=== PATIENT | male | born 1985 | race American Indian/Alaskan Native ===

== ENCOUNTER 2020-06-14 04:00 | Emergency (ER) | payer SELFPAY ==
[2020-06-14] MEDS ORDERED: ACETAMINOPHEN 325 MG TAB ONE (07:48)
[2020-06-14] MEDS ORDERED: ONDANSETRON 4 MG ODT TAB ONE (07:48)
[2020-06-14] MEDS ORDERED: IBUPROFEN 400 MG TAB PO ONE (07:49)
--- NOTE | 2020-06-15 17:59 | XRay Report ---
CHEST 1 VIEW 06/14/2020 3:55 AM INDICATION / CLINICAL INFORMATION: chest pain. COMPARISON: None available. FINDINGS: SUPPORT DEVICES: None. HEART / MEDIASTINUM: No significant abnormality. LUNGS / PLEURA: No significant pulmonary or pleural abnormality. No pneumothorax. ADDITIONAL FINDINGS: No significant additional findings. IMPRESSION: 1. No acute findings. Signer Name: Nikita Bridges MD Signed: 06/14/2020 5:00 AM Workstation Name: [id number]
[2020-06-22 14:24] LABS: Alanine Aminotransferase 15 units/L (7-56); Albumin 4.5 g/dL (3.9-5); BUN/Creatinine Ratio 18; Blood Urea Nitrogen 14 mg/dL (9-20); Calcium 9.2 mg/dL (8.4-10.2)
--- NOTE | 2020-07-30 06:47 | Event Note ---
Date: 06/14/20 Please note that this is a duplicate chart for the downtime chart written for this particular day of service. [id number] jason ghosh Birthday: 1985 Date of service 06/14/2020 The patient was evaluated in the emergency department for symptoms described in the history of present illness. He/she was evaluated in the context of the global COVID-19 pandemic, which necessitated consideration that the patient might be at risk for infection with the virus that causes COVID-19. Institutional protocols and algorithms that pertain to the evaluation of patients at risk for COVID-19 are in a state of rapid change based on information released by regulatory bodies including the CDC and federal and state organizations. These policies and algorithms were followed during the patient's care in the emergency department. Please note that these policies, procedures and recommendations changed on a rapid basis. Please note that at the time of this chart dictation, medical record system is on downtime, therefore, old medical records, are not accessible to myself. The patient is a pleasant, calm and cooperative 34-year-old gentleman, who is not known to myself previously, who does not have a local primary care doctor and denies chronic medical conditions. He presents to the ER with a complaint of nontraumatic central chest wall pain, present for the past 2 to 3 days, associated with dry cough. He denies headache, neck pain, abdominal pain, exertional shortness of breath, hematemesis, bright red blood per rectum, urinary symptoms, extremity weakness/numbness, he also denies loss of taste, loss of smell, and Covid symptomatology. He denies travel, surgery, immobilization, and family history of DVT, pulmonary embolism, and coronary artery disease. His chest wall pain is aching and throbbing, increases with palpation, range of motion, and decreases with rest. The pain does not radiate to the back, arms or neck. There is no diaphoresis or exertional shortness of breath. He endorses 3 episodes of nonbloody, nonbilious emesis, versus coughing up, which are since resolved. He has not taken anything [id number] for this. He occasionally consumes marijuana recreationally, but denies hard drugs. His symptoms are improved in the emergency room with acetaminophen and ibuprofen. Review of systems: As per history of present illness Physical exam: Blood pressure 117/76. Heart rate 82 bpm. Respirations 18/min. Saturating at 99% on room oxygen. Temperature 99.0 F. The patient appeared well nourished and normally developed. Vital signs as documented. Head exam is unremarkable. Normocephalic atraumatic No scleral icterus or corneal arcus noted. [id number] jason ghosh Birthday: 1985 Date of service 06/14/2020 Neck is without jugular venous distension, thyromegaly there are no meningeal signs, and the neck is nontender. . Lungs are clear to auscultation and percussion. There is reproducible central chest wall tenderness. There are no rales, rhonchi, or wheezes. . Rhythm is regular. First and second heart sounds normal. No murmurs, rubs or gallops. Abdominal exam reveals normal bowel sounds, no masses, no organomegaly and no aortic enlargement. There is no pulsatile abdominal mass. . 2+ pulses noted in the bilateral upper and lower extremities. There is no palpable cord. negative Homans sign. Muscular compartments are soft. The pelvis is stable. No facial droop. Tongue midline. Extraocular movements intact bilaterally. Facial sensation intact to light touch in V1, V2, V3 distribution bilaterally. 5 and a 5 strength in 4 extremities. Sensation intact to light touch in 4 extremities. No skin redness, pus, streaking, erythema, or breakdown. Diagnostic studies/laboratory studies: White blood cell count: 8.7. Hemoglobin: 15.5. Hematocrit: 44.7. Platelet count: 210. MCV: 88.9. Sodium: 140 potassium: 4.4 chloride: 101.1. CO2: 27 anion gap: 16 BUN: 14 creatinine: 0.18 glucose: 99 calcium: 9.2 total bilirubin: 0.6 AST: 17 ALT: 15 total protein: 7.1 troponin: 0.010/negative Lab Results 06/14/20 Range/Units 04:45 Sodium 140 (137-145) mmol/L Potassium 4.4 (3.6-5.0) mmol/L Chloride 101.1 (98-107) mmol/L Carbon Dioxide 27 (22-30) mmol/L Anion Gap 16 mmol/L BUN 14 (9-20) mg/dL Creatinine 0.8 (0.8-1.3) mg/dL Estimated GFR > 60 ml/min BUN/Creatinine Ratio 18 % Glucose 99 (75-100) mg/dL Calcium 9.2 (8.4-10.2) mg/dL Total Bilirubin 0.60 (0.1-1.2) mg/dL AST 17 (5-40) units/L ALT 15 (7-56) units/L Alkaline Phosphatase 71 (35-129) units/L Troponin T < 0.010 (0.00-0.029) ng/mL Total Protein 7.1 (6.3-8.2) g/dL Albumin 4.5 (3.9-5) g/dL Albumin/Globulin Ratio 1.7 % Labs 06/14/20 04:45 Sodium 140 Potassium 4.4 Chloride 101.1 Carbon Dioxide 27 Anion Gap 16 BUN 14 Creatinine 0.8 Estimated GFR > 60 BUN/Creatinine Ratio 18 Glucose 99 Calcium 9.2 Total Bilirubin 0.60 AST 17 ALT 15 Alkaline Phosphatase 71 Troponin T < 0.010 Total Protein 7.1 Albumin 4.5 Albumin/Globulin Ratio 1.7 EKG: Interpreted by myself. No prior for comparison. Sinus rhythm, 67 bpm, normal axis, normal intervals, early repolarization/high left ventricular voltage. Age appropriate normal variant. The EKG is not morphologically consistent with a STEMI. [id number] jason ghosh Birthday: 1985 Date of service 06/14/2020 X-ray of the chest: CHEST 1 VIEW 06/14/2020 3:55 AM INDICATION / CLINICAL INFORMATION: chest pain. COMPARISON: None available. FINDINGS: SUPPORT DEVICES: None. HEART / MEDIASTINUM: No significant abnormality. LUNGS / PLEURA: No significant pulmonary or pleural abnormality. No pneumothorax. ADDITIONAL FINDINGS: No significant additional findings. IMPRESSION: 1. No acute findings. Signer Name: Nikita Bridges MD Signed: 06/14/2020 4:00 AM Workstation Name: [id number] Differential diagnosis, including but not limited to: Costochondritis, bronchitis Assessment and plan: 34-year-old gentleman, not currently tachycardic, tachypneic or hypoxic, with no DVT or pulmonary embolism risk factors, low risk by Wells criteria, PERC negative, laboratory studies were ordered prior to my personal evaluation of this patient, troponin negative, EKG fairly unremarkable, low risk for major adverse cardiac event as per heart score, symptoms present for over 48 hours, troponin negative x1, therefore myocardial infarction excluded. Patient felt improved after supportive and symptomatic care/therapy. He can take Tylenol/ibuprofen [id number] at home, and follow-up with an outpatient primary care doctor. Return precautions are reviewed, and he endorses readiness for discharge at this time. Clinical impression: Costochondritis, bronchitis Disposition: Home, to self-care. Disposition condition: Stable. [id number] jason ghosh Birthday: 1985 Date of service 06/14/2020 Discharge diagnosis: Costochondritis, bronchitis Patient may alternate the prescribed pain medications and nausea medications as needed/directed. Avoid consumption of tobacco, and smoke products. Please follow-up with a primary care doctor within the next 7 to 10 days. Please return to the emergency room right away with new pain, worsened pain, migration of pain, projectile vomiting, change in mental status, confusion, inability to tolerate liquid feeds, new, worsened or different symptoms not present on the initial emergency room evaluation. Outpatient primary care follow-up: Dr. Adair; [phone]. Please call for appointment.
== END 2020-06-14 12:00 | disposition home or self-care (01) ==
LOC: ED 04:00
DX: R07.89 Other chest pain (principal); Z53.21 Procedure and treatment not carried out due to patient leaving prior to being seen by health care provider
CPT/HCPCS: 36415; 71045; 80053; 84484; 93005; Q0162

== ENCOUNTER 2020-08-23 22:51 | Emergency (ER) | payer SELFPAY ==
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
[2020-08-24 00:09] VITALS: BP 114/46
[2020-08-24] MEDS ORDERED: oxyCODONE /ACETAMINOPHEN 5-325MG TAB PO ONE (01:08)
== END 2020-08-24 01:19 | disposition home or self-care (01) ==
LOC: ED 22:51
DX: S62.316A Displaced fracture of base of fifth metacarpal bone, right hand, initial encounter for closed fracture (principal); Z79.899 Other long term (current) drug therapy; Y04.8XXA Assault by other bodily force, initial encounter; Y93.89 Activity, other specified; Y92.89 Other specified places as the place of occurrence of the external cause; Y99.8 Other external cause status